=== PATIENT | female | born 1960 | race Caucasian/White ===

== ENCOUNTER → 2025-03-28 | Outpatient (CLI) | payer MEDICARE, OTHER ==
[~2025-03-28] MED LIST: BUSP5 PO; CEPH500 PO; CRUTCH USE; CYMBALTA60 M1 PO; ELIQUIS5 M2 PO; FOLI1 PO; GABA300 PO; HYDHCL25 PO; ISODICACE; LOSA25 PO; MASOPHEN325 M4 PO; MULTI-VITAMIN1 EAC2 PO; OMEP20ER PO; OXYACE5T PO; RXOXYACE PO; TAMS.4ER PO
[2025-03-28 13:35] LABS: BASOPHILS ABSOLUTE AUTO 0.09 K/mm3 (0.00-0.23); BASOPHILS PERCENT AUTO 1 % (0-2); EOSINOPHILS ABSOLUTE AUTO 0.54 K/mm3 (0.00-0.68); EOSINOPHILS PERCENT AUTO 4 % (0-6); Hematocrit 31.6 % (33.0-51.0); Hemoglobin 9.9 g/dL (11.5-16.0); IMMATURE GRAN ABSOLUTE AUTO 0.09 K/mm3 (0.00-0.10); IMMATURE GRAN PERCENT AUTO 1 % (0-1); LYMPHOCYTES ABSOLUTE AUTO 3.23 K/mm3 (0.84-5.20); LYMPHOCYTES PERCENT AUTO 23 % (21-46); MONOCYTES ABSOLUTE AUTO 1.77 K/mm3 (0.16-1.47); MONOCYTES PERCENT AUTO 13 % (4-13); Mean Corpuscular HGB Conc 31.3 g/dL (31.5-36.5); Mean Corpuscular Volume 78 fL (80-100); NEUTROPHILS ABSOLUTE AUTO 8.49 K/mm3 (1.96-9.15); NEUTROPHILS PERCENT AUTO 60 % (41-73); NRBC ABSOLUTE 0.00 K/mm3 (0.00-0.02); NRBC Auto 0.0 /100 WBC (0.0-0.2); Platelet Count 582 K/mm3 (150-400); RDW Coefficient Variation 17.2 % (11.7-14.2); RDW Standard Deviation 48.3 fL (35.1-46.3)
[2025-03-28 14:06] LABS: Alanine Aminotransfer (ALT/SGP 17.0 U/L (12-78); Albumin, Blood 2.7 g/dL (3.4-5.0); Albumin/Globulin Ratio 0.5 (0.8-1.8); Anion Gap 7.0 mmol/L (3-11); Aspartate Aminotrans (AST/SGOT 17.0 U/L (12-37); Bilirubin, Total 0.3 mg/dL (0.1-1.0); Blood Urea Nitrogen 14.0 mg/dL (8-24); CO2, Blood 26.0 mmol/L (21-32); Calcium, Blood 10.8 mg/dL (8.5-10.1); Chloride, Blood 103.0 mmol/L (98-108); Creatinine, Blood 0.7 mg/dL (0.40-1.00); Globulin, Blood 5.2 g/dL (2.2-4.0); Glucose, Blood 102.0 mg/dL (70-99); Potassium, Blood 4.3 mmol/L (3.5-5.5); Sodium, Blood 132.0 mmol/L (136-145); Total Protein, Blood 7.9 g/dL (6.4-8.2)
== END ==
LOC: LAB 13:24 → LAB SHORT 13:24
PROVIDERS: Emergency Medicine
DX: N39.0 Urinary tract infection, site not specified (principal)
CPT/HCPCS: 80053; 85025; 87040; 87077; 87086; 87186

== ENCOUNTER 2025-03-29 15:33 | Emergency (ER) | payer MEDICARE, OTHER ==
[~2025-03-29] VITALS: Ht 162.6 cm; Wt 55.3 kg
[2025-03-29 16:11] LABS: BASOPHILS ABSOLUTE AUTO 0.10 K/mm3 (0.00-0.23); BASOPHILS PERCENT AUTO 1 % (0-2); EOSINOPHILS ABSOLUTE AUTO 0.60 K/mm3 (0.00-0.68); EOSINOPHILS PERCENT AUTO 5 % (0-6); Hematocrit 31.6 % (33.0-51.0); Hemoglobin 9.9 g/dL (11.5-16.0); IMMATURE GRAN ABSOLUTE AUTO 0.11 K/mm3 (0.00-0.10); IMMATURE GRAN PERCENT AUTO 1 % (0-1); LYMPHOCYTES ABSOLUTE AUTO 2.83 K/mm3 (0.84-5.20); LYMPHOCYTES PERCENT AUTO 22 % (21-46); MONOCYTES ABSOLUTE AUTO 1.22 K/mm3 (0.16-1.47); MONOCYTES PERCENT AUTO 10 % (4-13); Mean Corpuscular HGB Conc 31.3 g/dL (31.5-36.5); Mean Corpuscular Volume 79 fL (80-100); NEUTROPHILS ABSOLUTE AUTO 7.83 K/mm3 (1.96-9.15); NEUTROPHILS PERCENT AUTO 62 % (41-73); NRBC ABSOLUTE 0.00 K/mm3 (0.00-0.02); NRBC Auto 0.0 /100 WBC (0.0-0.2); Platelet Count 612 K/mm3 (150-400); RDW Coefficient Variation 17.0 % (11.7-14.2); RDW Standard Deviation 47.9 fL (35.1-46.3)
[2025-03-29 16:42] LABS: Alanine Aminotransfer (ALT/SGP 17.0 U/L (12-78); Albumin, Blood 2.7 g/dL (3.4-5.0); Albumin/Globulin Ratio 0.5 (0.8-1.8); Anion Gap 7.0 mmol/L (3-11); Aspartate Aminotrans (AST/SGOT 18.0 U/L (12-37); Bilirubin, Total 0.3 mg/dL (0.1-1.0); Blood Urea Nitrogen 17.0 mg/dL (8-24); CO2, Blood 28.0 mmol/L (21-32); Calcium, Blood 11.0 mg/dL (8.5-10.1); Chloride, Blood 102.0 mmol/L (98-108); Creatinine, Blood 0.82 mg/dL (0.40-1.00); Globulin, Blood 5.1 g/dL (2.2-4.0); Glucose, Blood 118.0 mg/dL (70-99); Potassium, Blood 4.2 mmol/L (3.5-5.5); Sodium, Blood 133.0 mmol/L (136-145); Total Protein, Blood 7.8 g/dL (6.4-8.2)
[2025-03-29 20:23] LABS: Source, Urine Clean Catch
[2025-03-29 20:27] LABS: Bilirubin, Urine Neg (Neg); Glucose Qualitative, Urine Neg (Neg); Ketones, Urine Neg (Neg); Leukocyte Esterase, Urine 3+ (Neg); Protein, Urine 3+ (Neg); Specific Gravity, Urine 1.015 (1.003-1.022); Urobilinogen, Urine NORM (Normal)
[2025-03-29 20:36] LABS: Color, Urine Pale Yellow (P-Yellow)
[2025-03-29 20:39] LABS: White Blood Cells, Urine TNTC /hpf (0-5)
[2025-03-29 20:40] LABS: Red Blood Cells, Urine 25-50 /hpf (0-2)
[2025-03-29] MEDS ORDERED: CefTRIAXone Sodium 1,000 MG in NS 100 ML IV ONE (22:30)
[2025-03-29] MEDS ORDERED: CEPH500 PO (22:33)
== END 2025-03-29 23:00 | disposition home or self-care (01) ==
LOC: ER 15:33
PROVIDERS: Physician Assistant
DX: N39.0 Urinary tract infection, site not specified (principal); D64.9 Anemia, unspecified; D75.839 Thrombocytosis, unspecified; E87.1 Hypo-osmolality and hyponatremia; Z88.5 Allergy status to narcotic agent; Z79.899 Other long term (current) drug therapy
CPT/HCPCS: 80053; 81001; 83605; 85025; 87077; 87086; 87186; 96374; 99283-25; J0696

== ENCOUNTER 2025-04-26 19:21 | Inpatient (IN) | payer MEDICARE, BC, OTHER ==
[~2025-04-26] VITALS: Ht 162.6 cm; Wt 63.9 kg
[~2025-04-26 19:21] MED LIST changes: +NS 1,000 ML IV SCH
[2025-04-26] MEDS ORDERED: NS 1,000 ML IV SCH ×2 (19:45→23:05)
[2025-04-26 20:14] LABS: BASOPHILS ABSOLUTE AUTO 0.07 K/mm3 (0.00-0.23); BASOPHILS PERCENT AUTO 0 % (0-2); EOSINOPHILS ABSOLUTE AUTO 0.46 K/mm3 (0.00-0.68); EOSINOPHILS PERCENT AUTO 3 % (0-6); Hematocrit 30.2 % (33.0-51.0); Hemoglobin 9.6 g/dL (11.5-16.0); IMMATURE GRAN ABSOLUTE AUTO 0.71 K/mm3 (0.00-0.10); IMMATURE GRAN PERCENT AUTO 4 % (0-1); LYMPHOCYTES ABSOLUTE AUTO 3.54 K/mm3 (0.84-5.20); LYMPHOCYTES PERCENT AUTO 21 % (21-46); MONOCYTES ABSOLUTE AUTO 1.44 K/mm3 (0.16-1.47); MONOCYTES PERCENT AUTO 9 % (4-13); Mean Corpuscular HGB Conc 31.8 g/dL (31.5-36.5); Mean Corpuscular Volume 77 fL (80-100); NEUTROPHILS ABSOLUTE AUTO 10.40 K/mm3 (1.96-9.15); NEUTROPHILS PERCENT AUTO 63 % (41-73); NRBC ABSOLUTE 0.03 K/mm3 (0.00-0.02); NRBC Auto 0.2 /100 WBC (0.0-0.2); Platelet Count 784 K/mm3 (150-400); RDW Coefficient Variation 18.9 % (11.7-14.2); RDW Standard Deviation 52.0 fL (35.1-46.3)
[2025-04-26 20:32] LABS: Alanine Aminotransfer (ALT/SGP 16.0 U/L (12-78); Albumin, Blood 2.2 g/dL (3.4-5.0); Albumin/Globulin Ratio 0.4 (0.8-1.8); Anion Gap 7.0 mmol/L (3-11); Aspartate Aminotrans (AST/SGOT 13.0 U/L (12-37); Bilirubin, Total 0.2 mg/dL (0.1-1.0); Blood Urea Nitrogen 18.0 mg/dL (8-24); CO2, Blood 25.0 mmol/L (21-32); Calcium, Blood 9.7 mg/dL (8.5-10.1); Chloride, Blood 104.0 mmol/L (98-108); Creatinine, Blood 1.0 mg/dL (0.40-1.00); Globulin, Blood 5.3 g/dL (2.2-4.0); Glucose, Blood 95.0 mg/dL (70-99); Potassium, Blood 4.0 mmol/L (3.5-5.5); Sodium, Blood 132.0 mmol/L (136-145); Total Protein, Blood 7.5 g/dL (6.4-8.2)
[2025-04-26 22:14] LABS: Source, Urine Clean Catch
[2025-04-26 22:23] LABS: Bilirubin, Urine Neg (Neg); Glucose Qualitative, Urine Neg (Neg); Ketones, Urine Neg (Neg); Leukocyte Esterase, Urine 3+ (Neg); Protein, Urine 3+ (Neg); Specific Gravity, Urine 1.010 (1.003-1.022); Urobilinogen, Urine NORM (Normal)
[2025-04-26 22:39] LABS: Color, Urine Pale Yellow (P-Yellow)
[2025-04-26 22:40] LABS: Red Blood Cells, Urine 50-100 /hpf (0-2); White Blood Cells, Urine TNTC /hpf (0-5)
[2025-04-26] MEDS ORDERED: FLU VACC TS2025(65UP)/MF59C/PF 45 MCG/0.5 ML SYRINGE IM SCH (23:45)
[2025-04-26] MEDS ORDERED: Ondansetron HCl 2 MG / ML 2ML Vial IV PRN (23:55)
[2025-04-27 01:32] VITALS: BP 98/65
[2025-04-27 03:52] LABS: Source, Urine Foley catheter
[2025-04-27 03:57] LABS: Bilirubin, Urine Neg (Neg); Glucose Qualitative, Urine Neg (Neg); Ketones, Urine Neg (Neg); Leukocyte Esterase, Urine 3+ (Neg); Protein, Urine 3+ (Neg); Specific Gravity, Urine 1.010 (1.003-1.022); Urobilinogen, Urine NORM (Normal)
[2025-04-27 04:03] LABS: Color, Urine Yellow (P-Yellow)
[2025-04-27 04:05] LABS: Red Blood Cells, Urine 50-100 /hpf (0-2); White Blood Cells, Urine TNTC /hpf (0-5)
--- NOTE | 2025-04-27 04:44 | NUR ---
PT ADMITTED DUIRNG SHIFT . ALERT AND ORIENTED X4, ABLE TO MAKE NEEDS KNOWN. ON ROOM AIR-CONT. PULSE OX IN PLACE. TELE IN PLACE-RUNNING SINUS TACH. PATIENT IS A ONE ASSIT WITH FWW. SOPHIA REPLACED-UA SENT. NO COMPLAINTS OF PAIN. BED IN LOW POSITION WITH WHEELS LOCKED. CALL LIGHT WITHIN REACH
[2025-04-27 05:17] VITALS: BP 102/76
[2025-04-27 07:50] VITALS: BP 126/80
[2025-04-27] MEDS ORDERED: Enoxaparin 40 MG/0.4 ML SYR SC SCH (09:00)
[2025-04-27] MEDS ORDERED: Lactobacil 2-S.Thermo-Bifido 1 1 Cap PO SCH (09:00)
[2025-04-27 10:34] LABS: Hematocrit 26.4 % (33.0-51.0); Hemoglobin 8.4 g/dL (11.5-16.0); Mean Corpuscular HGB Conc 31.8 g/dL (31.5-36.5); Mean Corpuscular Volume 76 fL (80-100); NRBC ABSOLUTE 0.03 K/mm3 (0.00-0.02); NRBC Auto 0.2 /100 WBC (0.0-0.2); Platelet Count 667 K/mm3 (150-400); RDW Coefficient Variation 18.7 % (11.7-14.2); RDW Standard Deviation 51.2 fL (35.1-46.3)
[2025-04-27 10:57] LABS: BASOPHILS ABSOLUTE MAN 0.12 K/mm3 (0.00-0.23); BASOPHILS PERCENT MAN 1 % (0-2); EOSINOPHILS ABSOLUTE MAN 0.61 K/mm3 (0.00-0.68); EOSINOPHILS PERCENT MAN 5 % (0-6); LYMPHOCYTES ABSOLUTE MAN 1.60 K/mm3 (0.84-5.20); LYMPHOCYTES PERCENT MAN 13 % (21-46); MONOCYTES ABSOLUTE MAN 0.86 K/mm3 (0.16-1.47); MONOCYTES PERCENT MAN 7 % (4-13); NEUTROPHILS ABSOLUTE MAN 9.16 K/mm3 (1.96-9.15); SEG NEUTROPHILS PERCENT MAN 74 % (41-73)
[2025-04-27 11:00] LABS: Alanine Aminotransfer (ALT/SGP 12.0 U/L (12-78); Albumin, Blood 1.8 g/dL (3.4-5.0); Albumin/Globulin Ratio 0.4 (0.8-1.8); Anion Gap 10.0 mmol/L (3-11); Aspartate Aminotrans (AST/SGOT 11.0 U/L (12-37); Bilirubin, Total 0.2 mg/dL (0.1-1.0); Blood Urea Nitrogen 14.0 mg/dL (8-24); CO2, Blood 22.0 mmol/L (21-32); Calcium, Blood 9.2 mg/dL (8.5-10.1); Chloride, Blood 109.0 mmol/L (98-108); Creatinine, Blood 0.66 mg/dL (0.40-1.00); Globulin, Blood 4.4 g/dL (2.2-4.0); Glucose, Blood 89.0 mg/dL (70-99); Magnesium, Blood 1.8 mg/dL (1.6-2.4); Potassium, Blood 3.7 mmol/L (3.5-5.5); Sodium, Blood 137.0 mmol/L (136-145); Total Protein, Blood 6.2 g/dL (6.4-8.2)
[2025-04-27 15:44] VITALS: BP 102/74
--- NOTE | 2025-04-27 18:59 | NUR ---
SHIFT SUMMARY PT IS A/OX3-4, FORGETFUL AT TIMES. UP WITH 2 PERSON ASSIST TO BSC. NO ACUTE CHANGES THROUGHOUT THIS SHIFT. CONTINUING IV ANTIBIOTICS. UROLOGY CONSULTED THIS AFTERNOON. PT IS PLEASANT AND COOPERATIVE WITH CARE AND CALLS APPROPRIATELY USING THE CALL LIGHT.
[2025-04-27 23:05] VITALS: BP 117/76
[2025-04-28 03:22] VITALS: BP 126/81
--- NOTE | 2025-04-28 03:30 | NUR ---
DR. CARPIO NOTIFIED OF CHANGES ON TELEMTRY MONITOR. RN SPOKE WITH FACE TO FACE AND SHOWED DR. CARPIO THE MONITOR STRIP SENT OVER FROM [facility]. VITAL SIGNS STABLES AND PATIENT IS ASYMPTOMATIC. PER DR. CARPIO "CONTINUE TO MONITOR PATIENT. NO EKG NEEDED"
--- NOTE | 2025-04-28 04:31 | NUR ---
PATIENT ALERT AND ORIENTED X4, ABLE TO MAKE NEEDS KNOWN. ABLE TO TURN SELF IN BED. PATIENT ON ROOM AIR AN CONT. PULSE OX. PATIENT HAS CORTES IN PLACE, DRAINING TO GRAVITY. DR. CARPIO NOTIFIED OF TELE CHANGES (SEE PREVIOUS NOTE). BED IN LOW POSITION WITH WHEELS LOCKED. CALL LIGHT WITHIN REACH
[2025-04-28 04:44] LABS: Hematocrit 28.5 % (33.0-51.0); Hemoglobin 8.9 g/dL (11.5-16.0); Mean Corpuscular HGB Conc 31.2 g/dL (31.5-36.5); Mean Corpuscular Volume 77 fL (80-100); NRBC ABSOLUTE 0.02 K/mm3 (0.00-0.02); NRBC Auto 0.2 /100 WBC (0.0-0.2); Platelet Count 738 K/mm3 (150-400); RDW Coefficient Variation 18.8 % (11.7-14.2); RDW Standard Deviation 52.7 fL (35.1-46.3)
[2025-04-28 05:04] LABS: BAND PERCENT MAN 2 % (0-8); BASOPHILS ABSOLUTE MAN 0.26 K/mm3 (0.00-0.23); BASOPHILS PERCENT MAN 2 % (0-2); EOSINOPHILS ABSOLUTE MAN 0.92 K/mm3 (0.00-0.68); EOSINOPHILS PERCENT MAN 7 % (0-6); LYMPHOCYTES ABSOLUTE MAN 3.56 K/mm3 (0.84-5.20); LYMPHOCYTES PERCENT MAN 27 % (21-46); METAMYELOCYTE ABSOLUTE MAN 0.26 K/mm3 (0.00-0.00); METAMYELOCYTE PERCENT MAN 2 % (0-0); MONOCYTES ABSOLUTE MAN 0.79 K/mm3 (0.16-1.47); MONOCYTES PERCENT MAN 6 % (4-13); MYELOCYTE ABSOLUTE MAN 0.13 K/mm3 (0.00-0.00); MYELOCYTE PERCENT MAN 1 % (0-0); NEUTROPHILS ABSOLUTE MAN 7.26 K/mm3 (1.96-9.15); SEG NEUTROPHILS PERCENT MAN 53 % (41-73)
[2025-04-28 05:26] VITALS: BP 128/83
[2025-04-28 05:34] LABS: Ferritin, Serum 80.0 ng/mL (8-252); Total Iron Binding Capacity 163.0 ug/dL (250-450)
[2025-04-28 05:35] LABS: Anion Gap 7.0 mmol/L (3-11); Blood Urea Nitrogen 17.0 mg/dL (8-24); CO2, Blood 25.0 mmol/L (21-32); Calcium, Blood 9.9 mg/dL (8.5-10.1); Chloride, Blood 107.0 mmol/L (98-108); Creatinine, Blood 0.7 mg/dL (0.40-1.00); Glucose, Blood 110.0 mg/dL (70-99); Potassium, Blood 3.9 mmol/L (3.5-5.5); Sodium, Blood 135.0 mmol/L (136-145)
--- NOTE | 2025-04-28 05:51 | NUR ---
RN NOTIFIED DR. CARPIO OF ST CHANGES ON TELE MONITOR. EKG WAS DONE. RN CALLED DR. CARPIO TO REVIEW THE EKG AND VITAL SIGNS. VITAL SIGNS STABLE AND PATIENT IS ASYMPTOMATIC. NO COMPLAINTS OF CHEST PAIN, SOB, LIGHTHEADED OR DIZZINESS. PER DR CARPIO "NO NEW ORDERS, CONTINUE TO MONITOR." PATIENT HAS CALL [facility] WITHIN REACH
[2025-04-28] MEDS ORDERED: NS 250 ML IV PRN (07:05)
[2025-04-28 07:23] VITALS: BP 119/78
[2025-04-28] MEDS ORDERED: DULoxetine HCL 60 MG Capsule DR PO SCH (09:00)
[2025-04-28] MEDS ORDERED: Multivitamins 1 Tab PO SCH (09:00)
[2025-04-28] MEDS ORDERED: Folic Acid 1 MG TAB PO SCH (09:00)
[2025-04-28 11:47] VITALS: BP 104/72
[2025-04-28 15:56] VITALS: BP 92/60
--- NOTE | 2025-04-28 19:23 | NUR ---
SHIFT SUMMARY PT IS A/OX4. UP TO BS WITH 2 PERSON STAND PIVOT. NO ACUTE CHANGES THROUGHOUT THIS SHIFT. ON TELE RUNNING SINUS RYTHYM/SINUS TACH. CHRONIC CORTES IN PLACE, PATENT AND DRAINING YELLOW URINE TO GRAVITY. PT IS COOPERATIVE WITH CARE AND CALLS APPROPRIATELY USING THE CALL LIGHT.
[2025-04-28 20:15] VITALS: BP 95/64
[2025-04-29 04:08] VITALS: BP 102/73
--- NOTE | 2025-04-29 05:18 | NUR ---
SHIFT SUMMARY A/OX4, PLEASANT AND COOPERATIVE WITH CARE. CORTES PATENT AND DRAINING TO GRAVITY. DENIES PAIN. PRN ANIXETY MEDS GIVEN AT BEDTIME. NO ACUTE CHANGES AT THIS TIME.
[2025-04-29 08:12] VITALS: BP 116/79
[2025-04-29] MEDS ORDERED: Enoxaparin 40 MG/0.4 ML SYR SC SCH (09:00)
[2025-04-29] MEDS ORDERED: FURO20 PO (15:47)
[2025-04-29] MEDS ORDERED: FERSU300 PO (15:49)
[2025-04-29 16:02] VITALS: BP 103/67
--- NOTE | 2025-04-29 19:42 | NUR ---
SUMMARY PT PENDING UROLOGY PROCEDURE ON 05/02. CHRONIC CORTES PATENT AND DRAINING TO GRACITY YELLOW URINE. PRN TYLENOL GIVEN FOR R SHOULDER PAIN (CHRONIC) WITH REPORTED RELIEF. 2 ASSIST TO STAND PIVOT TO [facility]. HX MS WITH RESIDUAL LEFT SIDED WEAKNESS, EDEMA TO LOWER EXTREMITY BILATERALLY BUT WORSE ON LEFT. NO ASSOCIATED REDNESS OR CALF TENDERNESS TO LEFT LEG. DIET CHANGED TO REGULAR DIET PER PT REQUEST AND DR. GOMES VERBALLY OK'D. STARTED SOEM ORAL IRON TABLETS THIS EVENING, MED REC UPDATED PT WAS TAKING FERROUS SULFATE AT HOME AND HAD NOT BEEN RESTARTED. CALLING APPROPRIATELY.
[2025-04-29 20:16] VITALS: BP 94/72
[2025-04-29 23:48] VITALS: BP 94/66
[2025-04-30 03:51] VITALS: BP 107/66
--- NOTE | 2025-04-30 04:27 | NUR ---
NO ACUTE CHANGES DURING SHIFT. PATIENT ALERT AND ORIENTED X4, ABLE TO MAKE NEEDS KNOWN. PATIENT ABLE TO TURN SELF IN BED. CHRONIC CORTES IN PLACE-DRAINING TO GRAVITY. PATIENT ON ROOM AIR WITH CONT. PULSE OX-SATING WELL, NO SOB. IV ANTIBIOTICS RECEIVED. TYLENOL GIVEN FOR PAIN. BED IN LOW POSITION WITH WHEELS LOCKED. CALL LIGHT WITHIN REACH.
[2025-04-30 07:54] VITALS: BP 113/78
[2025-04-30 10:45] VITALS: BP 92/61
[2025-04-30 15:26] VITALS: BP 90/66
--- NOTE | 2025-04-30 18:38 | NUR ---
SUMMARY PATIENT STILL PENDING UROLOGY PROCEDURE ON 05/02. DR. GOMES CALLED UROLOGY TO CONFIRM TODAY. PT UP TO CHAIR WITH 1 ASSIST STAND PIVOT TRANSFER WITH GAIT BELT. PT TOOK TWO PEOPLE TO GET BACK TO BED AFTER SITTING UP FOR A COUPLE HOURS. PT CONTINUES TO HAVE LEFT SIDED WEAKNESS, RELATED TO HX OF MS PER PATIENT. LEFT LEG IS CHRONICALLY LARGER THAN RIGHT. PO ANTIBIOTICS ADDED TO EMAR LAST NIGHT AFTER URINE CX RESULTS REVIWED BY DR. GOMES. NO ACUTE EVENTS ON TELE. PT HARD LARGE BM TODAY 04/30 UP TO BSC.
[2025-04-30 19:18] VITALS: BP 103/69
[2025-04-30 23:48] VITALS: BP 93/65
[2025-05-01 02:58] VITALS: BP 93/66
--- NOTE | 2025-05-01 03:38 | NUR ---
SHIFT SUMMARY- A&Ox4. PLEASANT AND COOPERATIVE WITH CARE. CALLS APPROPRIATELY AND IS ABLE TO ADVOCATE NEEDS EFFECTIVELY. BP HAS BEEN 93/66. TELEMETRY ORDERED SINUS RHYTHM 95. BREATHING EVEN AND UNLABORED ON RA. CHRONIC CORTES CATHETER IN PLACE. CONTINENT BOWEL TO IN ROOM REST ROOM. LBM 05/01/25. TOLERATING DIET. IV R AC SALINE LOCKED. AMBULATES INDEPENDENTLY WITH SBA. EXISTING L SIDED WEAKNESS DUE TO MS. MEDS WHOLE WITH FLUIDS. BED IN LOWEST POSITION, CALL LIGHT WITHIN REACH, ALL NEEDS MET. REPORT TO ONCOMING NURSE.
[2025-05-01 07:57] VITALS: BP 112/70
[2025-05-01 11:39] VITALS: BP 97/63
[2025-05-01 15:13] VITALS: BP 96/68
[2025-05-01 19:45] VITALS: BP 101/70
[2025-05-01 23:44] VITALS: BP 93/62
[2025-05-02] VITALS (19 sets, daily range): BP systolic 76–151; BP diastolic 47–99
--- NOTE | 2025-05-02 04:32 | NUR ---
SHIFT SUMMARY PT ALERT ORIENTED X 4 ABLE TO VERBALIZE NEEDS SHE REQUIRES A 2 PERSON TRANSFER TO USE THE COMMODE. SHES BEEN NPO SINCE MIDNIGHT FOR HER PROCEDURE TODAY. SHES BEEN VERY ANXIOUS ABOUT THE PROCEDURE. I GAVE HER A BUSPAR AND A HYDROXYZINE AND SHE SLEPT WELL. CORTES CATH INTACT DRAINING YELLOW URINE. SHE REMAINS A DAILY WEIGHT. REMAINS ON A CONTINUOUS PULSE OX SATTING AT 98% ON RA. REMAINS ON TELEMETRY AT NSR AT 91 WITH A BBB. REMAINS ON AMOXICILLIN AND MEROPENUM FOR A UTI. RESTING IN HER BED AT THIS TIME WITH CALL LIGHT IN REACH AND BED ALARM ON.
[2025-05-02 04:45] LABS: BASOPHILS ABSOLUTE AUTO 0.08 K/mm3 (0.00-0.23); BASOPHILS PERCENT AUTO 1 % (0-2); EOSINOPHILS ABSOLUTE AUTO 0.77 K/mm3 (0.00-0.68); EOSINOPHILS PERCENT AUTO 8 % (0-6); Hematocrit 26.2 % (33.0-51.0); Hemoglobin 8.2 g/dL (11.5-16.0); IMMATURE GRAN ABSOLUTE AUTO 0.33 K/mm3 (0.00-0.10); IMMATURE GRAN PERCENT AUTO 3 % (0-1); LYMPHOCYTES ABSOLUTE AUTO 3.61 K/mm3 (0.84-5.20); LYMPHOCYTES PERCENT AUTO 35 % (21-46); MONOCYTES ABSOLUTE AUTO 1.08 K/mm3 (0.16-1.47); MONOCYTES PERCENT AUTO 11 % (4-13); Mean Corpuscular HGB Conc 31.3 g/dL (31.5-36.5); Mean Corpuscular Volume 77 fL (80-100); NEUTROPHILS ABSOLUTE AUTO 4.46 K/mm3 (1.96-9.15); NEUTROPHILS PERCENT AUTO 43 % (41-73); NRBC ABSOLUTE 0.00 K/mm3 (0.00-0.02); NRBC Auto 0.0 /100 WBC (0.0-0.2); Platelet Count 722 K/mm3 (150-400); RDW Coefficient Variation 18.6 % (11.7-14.2); RDW Standard Deviation 50.7 fL (35.1-46.3)
[2025-05-02 05:04] LABS: Alanine Aminotransfer (ALT/SGP 26.0 U/L (12-78); Albumin, Blood 2.0 g/dL (3.4-5.0); Albumin/Globulin Ratio 0.5 (0.8-1.8); Anion Gap 4.0 mmol/L (3-11); Aspartate Aminotrans (AST/SGOT 26.0 U/L (12-37); Bilirubin, Total 0.1 mg/dL (0.1-1.0); Blood Urea Nitrogen 19.0 mg/dL (8-24); CO2, Blood 31.0 mmol/L (21-32); Calcium, Blood 10.0 mg/dL (8.5-10.1); Chloride, Blood 106.0 mmol/L (98-108); Creatinine, Blood 0.68 mg/dL (0.40-1.00); Globulin, Blood 4.4 g/dL (2.2-4.0); Glucose, Blood 106.0 mg/dL (70-99); Potassium, Blood 4.2 mmol/L (3.5-5.5); Sodium, Blood 137.0 mmol/L (136-145); Total Protein, Blood 6.4 g/dL (6.4-8.2)
--- NOTE | 2025-05-02 06:05 | NUR ---
CHG BATH WAS DONE LAST NIGHT FOR SURGERY THIS AM. DR. PALENCIA CALLED TO MAKE SURE THAT SHES BEEN NPO. HE STATED SURGERY IS AROUND 0900.
--- NOTE | 2025-05-02 09:14 | NUR ---
PT TRANSPORTED TO [facility]. AGREES WITH PLANNED SURGERY. LUNG SOUNDS CLEAR. History, Chart, Medications and Allergies reviewed before start of procedure. ANSWERS QUESTIONS APPROPRIATLY. STATES SHE SIGNS HER OWN MEDICAL PAPERWORK. Patient confirms NPO status and agrees with scheduled surgery.
[2025-05-02] MEDS ORDERED: FentaNYL Citrate 50 MCG/ML 2 ML Injection ONE ×2 (09:21→12:28)
[2025-05-02] MEDS ORDERED: Ondansetron HCl 2 MG / ML 2ML Vial IV PRN (10:35)
[2025-05-02] MEDS ORDERED: Morphine Sulfate 4 MG/1 ML Injection IV PRN (10:40)
[2025-05-02] MEDS ORDERED: FentaNYL Citrate 50 MCG/ML 2 ML Injection IV PRN ×2 (10:40)
[2025-05-02] MEDS ORDERED: Rocuronium Bromide 10 MG/ML 5ML Injection IV ONE (11:25)
[2025-05-02] MEDS ORDERED: Metoclopramide HCl 5MG / ML 2ML Vial ONE (11:40)
[2025-05-02] MEDS ORDERED: Ondansetron HCl 2 MG / ML 2ML Vial ONE ×2 (11:40→13:21)
[2025-05-02] MEDS ORDERED: Sugammadex Sodium 200 MG/2ML SDV (100 MG/ML) ONE (11:48)
--- NOTE | 2025-05-02 11:59 | NUR ---
05/02/25 Kari Barber ISOVUE 300--15ML USED
--- NOTE | 2025-05-02 15:09 | NUR ---
PATIENT RETURNED FROM PACU ~1340. NOTED TO BE HYPOXIC ON 2LPM/NC; INCREASED TO 3LPM/NC AND STILL MAINTAINING 91%. HYPOTENSIVE SBP < 90 AND TACHYCARDIC c HR >120. CALL TO DR SOLO: T.O. FOR 500mL NS BOLUS AND KEEP HIM UPDATED. ORDER READ BACK AND CONFIRMED.
[2025-05-02] MEDS ORDERED: NS 500 ML IV ONE (15:10)
[2025-05-02] MEDS ORDERED: Albuterol 2.5 MG/3 ML VIAL INH PRN (16:45)
--- NOTE | 2025-05-02 19:22 | NUR ---
END OF SHIFT SUMMARY: A&Ox4. PLEASANT AND COOPERATIVE WITH CARE. CALLS APPROPRIATELY AND IS ABLE TO ADVOCATE NEEDS EFFECTIVELY. VSS. TELE STRIP IN CHART REVIEWED AND INTERPRETED SINUS c BBB. BREATHING EVEN AND UNLABORED c RA PRIOR TO SURGERY. UPON RETURNING FROM SURGERY, NOTED TO BE LETHARGIC; SPOT ~86% c RA; FINALLY ABLE TO MAINTAIN >92% c2-3LPM/NC. HYPOTENSIVE AND TACHYCARDIC. GIVEN 500mL BOLUS NS PER DR GOMES. LATER DEVELOPING LOW-GRADE FEVER AND CRACKLES IN LLL; DR NOTIFIED AND RXd NEB Tx AND GIVEN APAP. INCONTINENT OF BOWEL AND BLADDER. CORTES PULLED AFTER SURGERY; HAS NOT YET VOIDED. LAST BLADDER SCAN 129mL. NOW AWAKE AND ALERT, TOLERATING DIET. IN PROCEDURE: REPLACED LEFT URETER STENT; UNABLE TO REPLACE RIGHT. 1-2PA c FWW & GB S/P TO BSC FOR BM. MEDS WHOLE c FLUIDS. BED IN LOWEST POSITION, CALL LIGHT WITHIN REACH, ALL NEEDS MET. REPORT TO ONCOMING NURSE.
[2025-05-03 00:21] VITALS: BP 76/51
[2025-05-03 04:02] VITALS: BP 80/51
--- NOTE | 2025-05-03 06:39 | NUR ---
SHIFT SUMMARY A/Ox4, LOW BP, OTHER VSS ON 1L. WEANED TO RA THIS MORNING; SPO2 >92%. PT REPORTS HEADACHE, MANAGED WITH PRN TYLENOL. BLADDER SCAN FOUND 569 ML, CORTES CATHETER PLACED, PT TOLERATED WELL. DRAINING TEA COLORED URINE. SAFETY PRECAUTIONS IN PLACE. GROCERY DEPARTMENT MANAGER REPORTS 17 BEAT RUN OF SVT, PT ASYMPTOMATIC. PT DENIES LIGHTHEADEDNESS, CHEST PAIN, NAUSEA.
[2025-05-03 07:48] VITALS: BP 97/63
--- NOTE | 2025-05-03 08:08 | NUR ---
ASSUMPTION OF CARE: THIS RN ASSUMED CARE OF PATIENT FOR SECOND DAY. AWAKE DURING SHIFT CHANGE REPORT. SITTING UP IN BED c HOB ELEVATED. BREATHING EVEN AND UNLABORED c ROOM AIR. CORTES PLACED LAST NIGHT; PATENT AND DRAINING TEA-COLORED URINE TO GRAVITY. MOST RECENT TELE STRIP IN CHART INTERPRETED SINUS TACH c BBB @ 105; NOTED TO HAVE 17-BEAT RUN OF SVT LAST NIGHT. NO LABS DRAWN THIS MORNING; LAST MAG DRAWN 04/27 WAS 1.8. BED IN LOWEST POSITION. CALL LIGHT WITHIN REACH. ACUTE NEEDS MET.
[2025-05-03] MEDS ORDERED: Enoxaparin 40 MG/0.4 ML SYR SC SCH (09:00)
[2025-05-03 15:33] VITALS: BP 77/50
[2025-05-03] MEDS ORDERED: NS 500 ML IV SCH (16:00)
[2025-05-03 16:21] LABS: Hematocrit 22.6 % (33.0-51.0); Hemoglobin 7.1 g/dL (11.5-16.0); Mean Corpuscular HGB Conc 31.4 g/dL (31.5-36.5); Mean Corpuscular Volume 79 fL (80-100); NRBC ABSOLUTE 0.00 K/mm3 (0.00-0.02); NRBC Auto 0.0 /100 WBC (0.0-0.2); Platelet Count 518 K/mm3 (150-400); RDW Coefficient Variation 18.5 % (11.7-14.2); RDW Standard Deviation 53.5 fL (35.1-46.3)
[2025-05-03 16:43] LABS: BAND PERCENT MAN 5 % (0-8); BASOPHILS ABSOLUTE MAN 0.00 K/mm3 (0.00-0.23); BASOPHILS PERCENT MAN 0 % (0-2); EOSINOPHILS ABSOLUTE MAN 0.00 K/mm3 (0.00-0.68); EOSINOPHILS PERCENT MAN 0 % (0-6); LYMPHOCYTES ABSOLUTE MAN 3.91 K/mm3 (0.84-5.20); LYMPHOCYTES PERCENT MAN 7 % (21-46); MONOCYTES ABSOLUTE MAN 5.03 K/mm3 (0.16-1.47); MONOCYTES PERCENT MAN 9 % (4-13); NEUTROPHILS ABSOLUTE MAN 47.03 K/mm3 (1.96-9.15); SEG NEUTROPHILS PERCENT MAN 79 % (41-73)
[2025-05-03 16:46] LABS: Alanine Aminotransfer (ALT/SGP 27.0 U/L (12-78); Albumin, Blood 1.9 g/dL (3.4-5.0); Albumin/Globulin Ratio 0.4 (0.8-1.8); Anion Gap 10.0 mmol/L (3-11); Aspartate Aminotrans (AST/SGOT 31.0 U/L (12-37); Bilirubin, Total 0.2 mg/dL (0.1-1.0); Blood Urea Nitrogen 29.0 mg/dL (8-24); CO2, Blood 25.0 mmol/L (21-32); Calcium, Blood 9.3 mg/dL (8.5-10.1); Chloride, Blood 102.0 mmol/L (98-108); Creatinine, Blood 1.59 mg/dL (0.40-1.00); Globulin, Blood 4.4 g/dL (2.2-4.0); Glucose, Blood 117.0 mg/dL (70-99); Magnesium, Blood 2.0 mg/dL (1.6-2.4); Potassium, Blood 4.6 mmol/L (3.5-5.5); Sodium, Blood 132.0 mmol/L (136-145); Total Protein, Blood 6.3 g/dL (6.4-8.2)
[2025-05-03 20:20] VITALS: BP 83/68
[2025-05-03 20:22] VITALS: BP 75/55
--- NOTE | 2025-05-03 20:32 | NUR ---
END OF SHIFT SUMMARY: A&Ox4. PLEASANT AND COOPERATIVE WITH CARE. CALLS APPROPRIATELY AND IS ABLE TO ADVOCATE NEEDS EFFECTIVELY. TELE STRIP IN CHART REVIEWED AND INTERPRETED SINUS TACH c BBB @ 105. BREATHING EVEN AND UNLABROED AT REST; DYSPNIC AND DESATURATES c EXERTION. DESATTED TO 62% TODAY WHEN TRANSFERRING TO COMMODE. RECOVERED c 2LPM/NC AND REST. CONTINUOUS PULSE OX IN PLACE. CXR TODAY WNL. HYPOTENSIVE AGAIN THIS AFTERNOON AND GIVEN ANOTHER 500mL BOLUS NS. IV INFILTRATED; POWERGLIDE PLACED JOSE ANTONIO. NOTED TO HAVE SIGNIFICANT INCREASE IN WBC FROM 10 TO ALMOST 60 TODAY; UROLOGIST, DR PALENCIA, HAPPENED TO BE AT BEDSIDE; SUSPECTS INCREASE IN WBC R/T ATTEMTPED DISLODGEMENT OF URETERAL STENT AND LITHOTROPSY. HE WILL CONFER WITH COVERING HOSPITALIST. TOLERATING PO INTAKE. MEDICATED x2 PRN PAIN AND ANXIETY. MEDS WHOLE c FLUIDS. WEAK DURING TRANSFER TO [facility] TODAY. NURSE FROM [facility] CAME TO VISIT; INFORMED WILL NOT BE ABLE TO DISCHARGE HOME UNTIL AT LEAST TUESDAY. DR PALENCIA BELIEVES PATIENT MAY NEED TO BE TRANSFERRED TO HIGHER LEVEL OF CARE DUE TO RETAINED RIGHT URETERAL STENT AND NO UROLOGY COVER FOR THE NEXT WEEK. DR PALENCIA WILL CONFER WITH HOSPITALIST. BED IN LOWEST POSITION, CALL LIGHT WITHIN REACH, ALL NEEDS MET. REPORT TO ONCOMING NURSE.
[2025-05-04] VITALS (7 sets, daily range): BP systolic 83–109; BP diastolic 59–82
--- NOTE | 2025-05-04 04:41 | NUR ---
PATIENT HAS RESTED COMFORTABLY OVERNIGHT. NO ACUTE EVENTS AND VITALS STABLE. PATIENT REQUESTED BUSPAR WITH BEDTIME MEDS D/T ANXIETY. BED IN LOW POSITION, CALL NIEVES WITHIN REACH, POSESSIONS WITHIN REACH.
[2025-05-04 11:23] LABS: BASOPHILS ABSOLUTE AUTO 0.10 K/mm3 (0.00-0.23); BASOPHILS PERCENT AUTO 0 % (0-2); EOSINOPHILS ABSOLUTE AUTO 0.32 K/mm3 (0.00-0.68); EOSINOPHILS PERCENT AUTO 1 % (0-6); Hematocrit 23.3 % (33.0-51.0); Hemoglobin 7.3 g/dL (11.5-16.0); IMMATURE GRAN ABSOLUTE AUTO 0.45 K/mm3 (0.00-0.10); IMMATURE GRAN PERCENT AUTO 1 % (0-1); LYMPHOCYTES ABSOLUTE AUTO 2.12 K/mm3 (0.84-5.20); LYMPHOCYTES PERCENT AUTO 5 % (21-46); MONOCYTES ABSOLUTE AUTO 2.37 K/mm3 (0.16-1.47); MONOCYTES PERCENT AUTO 6 % (4-13); Mean Corpuscular HGB Conc 31.3 g/dL (31.5-36.5); Mean Corpuscular Volume 78 fL (80-100); NEUTROPHILS ABSOLUTE AUTO 33.86 K/mm3 (1.96-9.15); NEUTROPHILS PERCENT AUTO 86 % (41-73); NRBC ABSOLUTE 0.00 K/mm3 (0.00-0.02); NRBC Auto 0.0 /100 WBC (0.0-0.2); Platelet Count 575 K/mm3 (150-400); RDW Coefficient Variation 18.7 % (11.7-14.2); RDW Standard Deviation 53.0 fL (35.1-46.3)
[2025-05-04] MEDS ORDERED: NS 1,000 ML IV SCH (11:40)
[2025-05-04 11:45] LABS: Alanine Aminotransfer (ALT/SGP 26.0 U/L (12-78); Albumin, Blood 1.9 g/dL (3.4-5.0); Albumin/Globulin Ratio 0.4 (0.8-1.8); Anion Gap 10.0 mmol/L (3-11); Aspartate Aminotrans (AST/SGOT 23.0 U/L (12-37); Bilirubin, Total 0.2 mg/dL (0.1-1.0); Blood Urea Nitrogen 30.0 mg/dL (8-24); CO2, Blood 24.0 mmol/L (21-32); Calcium, Blood 9.1 mg/dL (8.5-10.1); Chloride, Blood 104.0 mmol/L (98-108); Creatinine, Blood 1.02 mg/dL (0.40-1.00); Globulin, Blood 4.6 g/dL (2.2-4.0); Glucose, Blood 115.0 mg/dL (70-99); Potassium, Blood 4.4 mmol/L (3.5-5.5); Sodium, Blood 134.0 mmol/L (136-145); Total Protein, Blood 6.5 g/dL (6.4-8.2)
[2025-05-04 13:24] LABS: Prothrombin Time Results 10.8 Sec (9.7-11.5)
--- NOTE | 2025-05-04 19:47 | NUR ---
NO ACUTE CHANGES THIS SHIFT. UROLOGY ORDERED LABS AND CT, BOTH IMPROVED. CORTES IN PLACE DRAINING YELLOW URINE. NS STARTED AT 100ML/HR. RA WHILE AWAKE 1L O2 WHEN ASLEEP D/T DESAT TO 87%. FREQUENT SOFT BM THIS SHIFT INC IN BRIEF. PT ABLE TO MAKE NEEDS KNOWN, CALL LIGHT IN REACH.
[2025-05-05] VITALS (13 sets, daily range): BP systolic 97–125; BP diastolic 60–90
--- NOTE | 2025-05-05 03:49 | NUR ---
Patient alert and oriented, denies pain currently, lungs clear contact isolation in place for ESBL in urine, takes medication whole with water, NS at 100cc/hour, states she has been having multiple soft stools she feels is brought on by antibiotics, denies nausea, requesting buspar and atarax at bedtime, call light in reach, bed in low and locked position will continue to monitor.
[2025-05-05 05:08] LABS: BASOPHILS ABSOLUTE AUTO 0.08 K/mm3 (0.00-0.23); BASOPHILS PERCENT AUTO 0 % (0-2); EOSINOPHILS ABSOLUTE AUTO 0.47 K/mm3 (0.00-0.68); EOSINOPHILS PERCENT AUTO 2 % (0-6); Hematocrit 22.9 % (33.0-51.0); Hemoglobin 7.1 g/dL (11.5-16.0); IMMATURE GRAN ABSOLUTE AUTO 0.14 K/mm3 (0.00-0.10); IMMATURE GRAN PERCENT AUTO 1 % (0-1); LYMPHOCYTES ABSOLUTE AUTO 2.71 K/mm3 (0.84-5.20); LYMPHOCYTES PERCENT AUTO 13 % (21-46); MONOCYTES ABSOLUTE AUTO 1.54 K/mm3 (0.16-1.47); MONOCYTES PERCENT AUTO 8 % (4-13); Mean Corpuscular HGB Conc 31.0 g/dL (31.5-36.5); Mean Corpuscular Volume 79 fL (80-100); NEUTROPHILS ABSOLUTE AUTO 15.38 K/mm3 (1.96-9.15); NEUTROPHILS PERCENT AUTO 76 % (41-73); NRBC ABSOLUTE 0.00 K/mm3 (0.00-0.02); NRBC Auto 0.0 /100 WBC (0.0-0.2); Platelet Count 597 K/mm3 (150-400); RDW Coefficient Variation 18.6 % (11.7-14.2); RDW Standard Deviation 53.4 fL (35.1-46.3)
[2025-05-05 06:05] LABS: Alanine Aminotransfer (ALT/SGP 26.0 U/L (12-78); Albumin, Blood 1.8 g/dL (3.4-5.0); Albumin/Globulin Ratio 0.4 (0.8-1.8); Anion Gap 7.0 mmol/L (3-11); Aspartate Aminotrans (AST/SGOT 27.0 U/L (12-37); Bilirubin, Total 0.3 mg/dL (0.1-1.0); Blood Urea Nitrogen 24.0 mg/dL (8-24); CO2, Blood 27.0 mmol/L (21-32); Calcium, Blood 9.3 mg/dL (8.5-10.1); Chloride, Blood 108.0 mmol/L (98-108); Creatinine, Blood 0.77 mg/dL (0.40-1.00); Globulin, Blood 4.3 g/dL (2.2-4.0); Glucose, Blood 97.0 mg/dL (70-99); Potassium, Blood 4.4 mmol/L (3.5-5.5); Sodium, Blood 138.0 mmol/L (136-145); Total Protein, Blood 6.1 g/dL (6.4-8.2)
[2025-05-05] MEDS ORDERED: NS 500 ML IV SCH (10:40)
--- NOTE | 2025-05-05 18:09 | NUR ---
SHIFT SUMMARY PT A&OX4, VSS, RA TO 1 L O2 FOR DESATTING TO 87% WHILE SLEEPING. HGB THIS MORNING 7.1, 1 UNIT PRBC INFUSED, PT TOLERATED WELL. CORTES IN PLACE DRAINING CLEAR YELLOW URINE. OT EVAL TODAY. ORAL AND IV ABX CONTINUED. ABLE TO MAKE NEEDS KNOWN, CALL LIGHT IN REACH.
[2025-05-06 04:16] VITALS: BP 117/74
[2025-05-06 04:17] VITALS: BP 117/74
[2025-05-06 04:47] LABS: BASOPHILS ABSOLUTE AUTO 0.12 K/mm3 (0.00-0.23); BASOPHILS PERCENT AUTO 1 % (0-2); EOSINOPHILS ABSOLUTE AUTO 0.66 K/mm3 (0.00-0.68); EOSINOPHILS PERCENT AUTO 5 % (0-6); Hematocrit 25.9 % (33.0-51.0); Hemoglobin 8.5 g/dL (11.5-16.0); IMMATURE GRAN ABSOLUTE AUTO 0.16 K/mm3 (0.00-0.10); IMMATURE GRAN PERCENT AUTO 1 % (0-1); LYMPHOCYTES ABSOLUTE AUTO 3.30 K/mm3 (0.84-5.20); LYMPHOCYTES PERCENT AUTO 25 % (21-46); MONOCYTES ABSOLUTE AUTO 1.23 K/mm3 (0.16-1.47); MONOCYTES PERCENT AUTO 9 % (4-13); Mean Corpuscular HGB Conc 32.8 g/dL (31.5-36.5); Mean Corpuscular Volume 77 fL (80-100); NEUTROPHILS ABSOLUTE AUTO 7.87 K/mm3 (1.96-9.15); NEUTROPHILS PERCENT AUTO 59 % (41-73); NRBC ABSOLUTE 0.00 K/mm3 (0.00-0.02); NRBC Auto 0.0 /100 WBC (0.0-0.2); Platelet Count 622 K/mm3 (150-400); RDW Coefficient Variation 18.0 % (11.7-14.2); RDW Standard Deviation 50.2 fL (35.1-46.3)
[2025-05-06 05:05] LABS: Anion Gap 8.0 mmol/L (3-11); Blood Urea Nitrogen 19.0 mg/dL (8-24); CO2, Blood 27.0 mmol/L (21-32); Calcium, Blood 10.2 mg/dL (8.5-10.1); Chloride, Blood 108.0 mmol/L (98-108); Creatinine, Blood 0.69 mg/dL (0.40-1.00); Glucose, Blood 91.0 mg/dL (70-99); Potassium, Blood 4.5 mmol/L (3.5-5.5); Sodium, Blood 138.0 mmol/L (136-145)
--- NOTE | 2025-05-06 06:50 | NUR ---
SHIFT SUMMARY PT REMAINS NORMOTENSIVE. DOES HAVE 1 EPISODE OF DE-SAT TO 87% ON RA THIS EVENING. PLACED ON 1L NC WITH IMPROVEMENT >92% SPO2. REMAINS IN BED WITH CHRONIC LUE/LLE FLACCIDITY DUE TO [place] FORREST AND COOPERATIVE WITH CARE. NO FURTHER BMS THIS EVEING AFTER 5 LOOSE BMS YESTERDAY PT RELATES TO ANTIBIOTIC USE. PENDING PT EVAL TODAY. OT ADVISED SNF. DR. PALENCIA HAS ARRANGED WITH DR. ALEJANDRO DUTY OF [facility] NE[facility]OLOG[facility] F/U FOR PT'S RETAINED R URETER STENT. CHRONIC CORTES IN PLACE DRAINING CLEAR DARK-YELLOW URINE. PT'S RESIDENCE AT [place]. WHEELCHAIR BOUND AT BASELINE. PATENT POWERGLIDE THAT DRAWS WELL IN JOSE ANTONIO.
--- NOTE | 2025-05-06 06:52 | NUR ---
PT C/O FLANAGAN AND ANXIETY THIS SHIFT. MEDICATION GIVEN RX. PT SLEPT T/O SHIFT NO ACUTES CHANGES NOTED.
[2025-05-06 08:17] VITALS: BP 108/75
[2025-05-06 14:43] VITALS: BP 107/81
--- NOTE | 2025-05-06 18:33 | NUR ---
SHIFT SUMMARY PT IS A/OX4. WHEELCHAIR AT BASELINE. NO ACUTE EVENTS THROUGHOUT THIS SHIFT. ON RA, SATS >92% ON CONT PULSE OX. CHRONIC CORTES DRAINING CLEAR, YELLOW URINE TO GRAVITY. ON TELE RUNNING NORMAL SINUS RYTHYM IN THE S. CONTINUING IV ANTIBIOTICS. PT IS COOPERATIVE WITH CARE AND CALLS APPROPRIATELY.
[2025-05-06 19:28] VITALS: BP 113/69
[2025-05-07] VITALS (7 sets, daily range): BP systolic 99–124; BP diastolic 66–86
--- NOTE | 2025-05-07 05:46 | NUR ---
SHIFT SUMMARY CONTINUE CONTACT PRECAUTIONS FOR ESBL. CONTINUE IV MEROPENEM VIA JOSE ANTONIO POWERGLIDE FOR E. COLI AND E. FAECALIS UTI. CHRONIC CORTES DRAINING YELLOW URINE TO GRAVITY S/P PLACEMENT FOR RETENTION FOLLOWING L URETERIC STENT PLACEMENT 05/02. TELEMETRY UPDATES MONITOR SHOWING LOW VOLTAGE AT 0505, PT DECLINES ANY SYMPTOMS AND STATES SHE WILL ATTEMPT TO RETURN TO SLEEP. PENDING SNF UPON DISPOSITION. NOT REQUIRING FURTHER PRBC TRANSFUSION TODAY S/P 1 U TRANSFUSED 05/06. USING 1L NC DURING SLEEP PER RT WITH NO FURTHER DE-SAT BELOW 92% THIS EVENING. PLAN S/P SNF FOR OUTPATIENT F/U WITH DR. FLAVIA HOUSTON OF [facility] TO CONSIDER R URETERIC STENT REMOVAL & SHOCK WAVE LITHOTRISPY FOR STONES. PT TAKING MEDS WHOLE WITH WATER. PT WAKES EACH AM DURING THIS [id number] STAY WITH HEADACHE AND B/L EAR PAIN. PLAN TO DISCUSS WITH ONCOMING RN FOR REPORT TO
[2025-05-07 05:48] LABS: BASOPHILS ABSOLUTE AUTO 0.14 K/mm3 (0.00-0.23); BASOPHILS PERCENT AUTO 1 % (0-2); EOSINOPHILS ABSOLUTE AUTO 0.71 K/mm3 (0.00-0.68); EOSINOPHILS PERCENT AUTO 6 % (0-6); Hematocrit 27.6 % (33.0-51.0); Hemoglobin 8.9 g/dL (11.5-16.0); IMMATURE GRAN ABSOLUTE AUTO 0.41 K/mm3 (0.00-0.10); IMMATURE GRAN PERCENT AUTO 3 % (0-1); LYMPHOCYTES ABSOLUTE AUTO 3.70 K/mm3 (0.84-5.20); LYMPHOCYTES PERCENT AUTO 29 % (21-46); MONOCYTES ABSOLUTE AUTO 1.27 K/mm3 (0.16-1.47); MONOCYTES PERCENT AUTO 10 % (4-13); Mean Corpuscular HGB Conc 32.2 g/dL (31.5-36.5); Mean Corpuscular Volume 78 fL (80-100); NEUTROPHILS ABSOLUTE AUTO 6.47 K/mm3 (1.96-9.15); NEUTROPHILS PERCENT AUTO 51 % (41-73); NRBC ABSOLUTE 0.00 K/mm3 (0.00-0.02); NRBC Auto 0.0 /100 WBC (0.0-0.2); Platelet Count 659 K/mm3 (150-400); RDW Coefficient Variation 18.5 % (11.7-14.2); RDW Standard Deviation 51.9 fL (35.1-46.3)
[2025-05-07 06:07] LABS: Anion Gap 6.0 mmol/L (3-11); Blood Urea Nitrogen 21.0 mg/dL (8-24); CO2, Blood 29.0 mmol/L (21-32); Calcium, Blood 10.8 mg/dL (8.5-10.1); Chloride, Blood 106.0 mmol/L (98-108); Creatinine, Blood 0.82 mg/dL (0.40-1.00); Glucose, Blood 99.0 mg/dL (70-99); Potassium, Blood 4.5 mmol/L (3.5-5.5); Sodium, Blood 136.0 mmol/L (136-145)
[2025-05-07 15:45] LABS: Anti-Xa UFH, PHA Monitoring <0.10 IU/mL; Prothrombin Time Results 10.6 Sec (9.7-11.5)
[2025-05-07] MEDS ORDERED: Heparin Sodium,Porcine/0.5 NS 500 ML IV SCH (16:00)
[2025-05-07] MEDS ORDERED: Heparin Sodium 10,000 Units/ML 1ML MDV IV ONE (16:00)
--- NOTE | 2025-05-07 17:08 | NUR ---
SHIFT SUMMARY: PT A&OX4. FOLLOWS COMMANDS AND MAKES NEEDS KNOWN TO STAFF. PT GOT OUT OF BED TODAY FOR LUNCH WITH 1P ASSIST. DENIES ANY COMPLAINTS OF CP, PRESSURE, TIGHTNESS OR SOB. VSS. MAP >65. PT HAD A L LEG ULTRASOUND THAT SHOWED A DVT FROM THE GROIN TO THE KNEE. HEPARIN GTT STARTED. CORTES REMAINS IN PLACE, DRAINING YELLOW URINE. NO SIGNIFICNAT EVENTS HAPPENED DURING THIS SHIFT. WILL CONTINUE TO CARE FOR PT TILL END OF SHIFT.
[2025-05-08] MEDS ORDERED: Dose Adjust by Pharmacy XX STA ×4 (00:32→20:47)
[2025-05-08 04:37] VITALS: BP 109/69
[2025-05-08 06:32] LABS: Hematocrit 27.1 % (33.0-51.0); Hemoglobin 8.5 g/dL (11.5-16.0); Mean Corpuscular HGB Conc 31.4 g/dL (31.5-36.5); Mean Corpuscular Volume 78 fL (80-100); NRBC ABSOLUTE 0.00 K/mm3 (0.00-0.02); NRBC Auto 0.0 /100 WBC (0.0-0.2); Platelet Count 676 K/mm3 (150-400); RDW Coefficient Variation 18.9 % (11.7-14.2); RDW Standard Deviation 53.1 fL (35.1-46.3)
--- NOTE | 2025-05-08 06:46 | NUR ---
Shift Summary Pt on heparin drip t/o the night. Wyatt in place draining yellow urine. Pt c/o of head and neck pain, medicated twice with PRN Tylenol, pain managed well. She slept t/o most of the night. She was on 1L NC O2 while asleep and cont. O2 monitor. If her O2 was not on she would desat down to mid 80's. She had one loose incontinent BM. L sided deficits. Pt very weak, she remained in bed, WC at baseline.
[2025-05-08 06:57] LABS: BAND PERCENT MAN 1 % (0-8); BASOPHILS ABSOLUTE MAN 0.26 K/mm3 (0.00-0.23); BASOPHILS PERCENT MAN 2 % (0-2); EOSINOPHILS ABSOLUTE MAN 0.78 K/mm3 (0.00-0.68); EOSINOPHILS PERCENT MAN 6 % (0-6); LYMPHOCYTES ABSOLUTE MAN 4.70 K/mm3 (0.84-5.20); LYMPHOCYTES PERCENT MAN 36 % (21-46); METAMYELOCYTE ABSOLUTE MAN 0.65 K/mm3 (0.00-0.00); METAMYELOCYTE PERCENT MAN 5 % (0-0); MONOCYTES ABSOLUTE MAN 0.91 K/mm3 (0.16-1.47); MONOCYTES PERCENT MAN 7 % (4-13); MYELOCYTE ABSOLUTE MAN 0.13 K/mm3 (0.00-0.00); MYELOCYTE PERCENT MAN 1 % (0-0); NEUTROPHILS ABSOLUTE MAN 5.62 K/mm3 (1.96-9.15); SEG NEUTROPHILS PERCENT MAN 42 % (41-73)
[2025-05-08 06:58] LABS: Anion Gap 6.0 mmol/L (3-11); Blood Urea Nitrogen 18.0 mg/dL (8-24); CO2, Blood 30.0 mmol/L (21-32); Calcium, Blood 10.4 mg/dL (8.5-10.1); Chloride, Blood 107.0 mmol/L (98-108); Creatinine, Blood 0.69 mg/dL (0.40-1.00); Glucose, Blood 89.0 mg/dL (70-99); Potassium, Blood 4.5 mmol/L (3.5-5.5); Sodium, Blood 138.0 mmol/L (136-145)
[2025-05-08] MEDS ORDERED: Heparin Sodium 5000 Units/ML 1ML MDV IV ONE (07:00)
[2025-05-08 07:52] VITALS: BP 101/71
[2025-05-08 12:30] VITALS: BP 113/79
[2025-05-08 16:22] VITALS: BP 109/77
--- NOTE | 2025-05-08 19:22 | NUR ---
SHIFT SUMMARY- PATIENT HAD SOFT INCONTINENT BM WHICH SHE STATES IS NORMAL FOR HER. HCP CONSULTED WITH [facility] TODAY IN REGARDS TO THE DVT IN HER LEFT LEG. THEY WILL BE DISCUSSING IF PROCEDURE WILL BE NEEDED TO RESOLVE. THERE HAS BEEN NO CHANGE TO CARE IN REGARDS TO THAT ON THIS RNS SHIFT.
[2025-05-08 21:09] VITALS: BP 103/73
[2025-05-09 00:34] VITALS: BP 98/65
--- NOTE | 2025-05-09 04:42 | NUR ---
SHIFT SUMMARY: PT AOX3-4. CONT. PULSE OX IN PLACE AND PT O2 GREATER THEN 93 PERCENT. PT RESTING THROUGH OUT THE NIGHT AND MEDICATED PER EMAR. NO ACUTE CHANGES THIS SHIFT.
[2025-05-09 05:00] VITALS: BP 112/71
[2025-05-09 05:03] LABS: Hematocrit 26.6 % (33.0-51.0); Hemoglobin 8.3 g/dL (11.5-16.0); Mean Corpuscular HGB Conc 31.2 g/dL (31.5-36.5); Mean Corpuscular Volume 79 fL (80-100); NRBC ABSOLUTE 0.00 K/mm3 (0.00-0.02); NRBC Auto 0.0 /100 WBC (0.0-0.2); Platelet Count 676 K/mm3 (150-400); RDW Coefficient Variation 19.3 % (11.7-14.2); RDW Standard Deviation 54.7 fL (35.1-46.3)
[2025-05-09 05:26] LABS: Anion Gap 4.0 mmol/L (3-11); Blood Urea Nitrogen 21.0 mg/dL (8-24); CO2, Blood 30.0 mmol/L (21-32); Calcium, Blood 10.4 mg/dL (8.5-10.1); Chloride, Blood 106.0 mmol/L (98-108); Creatinine, Blood 0.64 mg/dL (0.40-1.00); Glucose, Blood 94.0 mg/dL (70-99); Potassium, Blood 4.4 mmol/L (3.5-5.5); Sodium, Blood 136.0 mmol/L (136-145)
[2025-05-09 06:05] LABS: BAND PERCENT MAN 1 % (0-8); BASOPHILS ABSOLUTE MAN 0.37 K/mm3 (0.00-0.23); BASOPHILS PERCENT MAN 3 % (0-2); EOSINOPHILS ABSOLUTE MAN 0.98 K/mm3 (0.00-0.68); EOSINOPHILS PERCENT MAN 8 % (0-6); LYMPHOCYTES % ATYPICAL MANUAL 1 % (0-0); LYMPHOCYTES ABSOLUTE MAN 5.19 K/mm3 (0.84-5.20); LYMPHOCYTES PERCENT MAN 41 % (21-46); METAMYELOCYTE ABSOLUTE MAN 0.12 K/mm3 (0.00-0.00); METAMYELOCYTE PERCENT MAN 1 % (0-0); MONOCYTES ABSOLUTE MAN 0.49 K/mm3 (0.16-1.47); MONOCYTES PERCENT MAN 4 % (4-13); NEUTROPHILS ABSOLUTE MAN 5.19 K/mm3 (1.96-9.15); SEG NEUTROPHILS PERCENT MAN 41 % (41-73)
[2025-05-09 07:44] VITALS: BP 114/79
[2025-05-09 11:14] VITALS: BP 95/63
[2025-05-09 15:33] VITALS: BP 104/66
[2025-05-09] MEDS ORDERED: HYDROcodone 5-APAP 325 TAB PO PRN (17:50)
--- NOTE | 2025-05-09 19:08 | NUR ---
SHIFT SUMMARY- CARE PLAN IS WORKING ON RESOLVING DVT IN LL. A REPEAT ULTRASOUND WAS DONE TODAY TO SEE THE PROGRESS OF CLOT WITH HEPARIN THERAPY. RESULTS AND REVIEW OF THAT ULTRASOUND ARE PENDING. CONTINUOUS PULSE/OX DISCONTINUED TODAY AT THE PATIENT S REQUEST. PATIENT REPORTED WORSENING LEG PAIN THAT IS UNRESOLVED WITH TYLENOL. HCP ORDERED VICODEN FOR RELIEF OF LEG PAIN.
[2025-05-09 19:32] VITALS: BP 110/63
[2025-05-10 00:21] VITALS: BP 101/65
[2025-05-10 03:51] LABS: Hematocrit 26.7 % (33.0-51.0); Hemoglobin 8.2 g/dL (11.5-16.0); Mean Corpuscular HGB Conc 30.7 g/dL (31.5-36.5); Mean Corpuscular Volume 79 fL (80-100); NRBC ABSOLUTE 0.00 K/mm3 (0.00-0.02); NRBC Auto 0.0 /100 WBC (0.0-0.2); Platelet Count 661 K/mm3 (150-400); RDW Coefficient Variation 19.7 % (11.7-14.2); RDW Standard Deviation 55.8 fL (35.1-46.3)
[2025-05-10 04:09] VITALS: BP 102/67
[2025-05-10 04:10] LABS: Anion Gap 5.0 mmol/L (3-11); Blood Urea Nitrogen 28.0 mg/dL (8-24); CO2, Blood 29.0 mmol/L (21-32); Calcium, Blood 10.1 mg/dL (8.5-10.1); Chloride, Blood 106.0 mmol/L (98-108); Creatinine, Blood 0.81 mg/dL (0.40-1.00); Glucose, Blood 96.0 mg/dL (70-99); Potassium, Blood 4.4 mmol/L (3.5-5.5); Sodium, Blood 136.0 mmol/L (136-145)
[2025-05-10 04:13] LABS: BAND PERCENT MAN 1 % (0-8); BASOPHILS ABSOLUTE MAN 0.10 K/mm3 (0.00-0.23); BASOPHILS PERCENT MAN 1 % (0-2); EOSINOPHILS ABSOLUTE MAN 0.84 K/mm3 (0.00-0.68); EOSINOPHILS PERCENT MAN 8 % (0-6); LYMPHOCYTES ABSOLUTE MAN 5.28 K/mm3 (0.84-5.20); LYMPHOCYTES PERCENT MAN 50 % (21-46); METAMYELOCYTE ABSOLUTE MAN 0.31 K/mm3 (0.00-0.00); METAMYELOCYTE PERCENT MAN 3 % (0-0); MONOCYTES ABSOLUTE MAN 0.42 K/mm3 (0.16-1.47); MONOCYTES PERCENT MAN 4 % (4-13); MYELOCYTE ABSOLUTE MAN 0.21 K/mm3 (0.00-0.00); MYELOCYTE PERCENT MAN 2 % (0-0); NEUTROPHILS ABSOLUTE MAN 3.38 K/mm3 (1.96-9.15); SEG NEUTROPHILS PERCENT MAN 31 % (41-73)
--- NOTE | 2025-05-10 04:14 | NUR ---
NO ACUTE CHANGES DURING SHIFT. PATIENT ALERT AND ORIENTED X4, ABLE TO MAKE NEEDS KNOWN. PATIENT ABLE TO TURN SELF IN BED. POWERGLIDE TO JOSE ANTONIO-HEPARIN RUNNING.PATIENT MEDICATED FOR PAIN-SEE EMAR. PATIENT HAS CORTES IN PLACE. BED IN LOW POSITION WITH WHEELS LOCKED. CALL LIGHT WITHIN REACH.
[2025-05-10] MEDS ORDERED: Clarify Drug Order XX ONE (05:30)
--- NOTE | 2025-05-10 06:59 | NUR ---
HEPARIN LEVEL WITHIN RANGE. NO CHANGE PER PHARMACY ORDER- PUMP AND ORDER VERIFIED WITH ROBERT LEDESMA
[2025-05-10 08:03] VITALS: BP 113/74
[2025-05-10 11:14] VITALS: BP 112/70
[2025-05-10] MEDS ORDERED: Heparin Sodium 1000 Units/ML 10ML MDV ONE ×2 (13:32→13:39)
[2025-05-10] MEDS ORDERED: NS 1,000 ML IV ONE ×2 (13:32→13:34)
[2025-05-10] MEDS ORDERED: Midazolam HCl 1MG / ML 2ML Vial ONE (13:38)
[2025-05-10] MEDS ORDERED: FentaNYL Citrate 50 MCG/ML 2 ML Injection ONE (13:38)
[2025-05-10 15:42] VITALS: BP 103/62
--- NOTE | 2025-05-10 16:51 | NUR ---
SHIFT SUMMARY- CARE PLAN IS WORKING ON RESOLVING DVT IN LL. PATIENT HAD A SUCCESSFUL THROMBECTOMY OF HER LEFT LOWER EXTREMITY TODAY. SHE CONTINUES ON HEPARIN DRIP WITH ANTICIPATION OF CHANGING OVER TO AN ORAL. PATIENT CONTINUES TO HAVE HEADACHES CONTROLLED BY TYLENOL AND LLE PAIN CONTROLLED WITH HYDROCODONE. ANTICIPATE DISCHARGE IN THE NEXT 24-48 HOURS.
[2025-05-10 19:19] VITALS: BP 109/76
[2025-05-11 00:10] VITALS: BP 99/66
[2025-05-11 03:53] LABS: BASOPHILS ABSOLUTE AUTO 0.12 K/mm3 (0.00-0.23); BASOPHILS PERCENT AUTO 1 % (0-2); EOSINOPHILS ABSOLUTE AUTO 0.63 K/mm3 (0.00-0.68); EOSINOPHILS PERCENT AUTO 6 % (0-6); Hematocrit 26.7 % (33.0-51.0); Hemoglobin 8.4 g/dL (11.5-16.0); IMMATURE GRAN ABSOLUTE AUTO 0.39 K/mm3 (0.00-0.10); IMMATURE GRAN PERCENT AUTO 3 % (0-1); LYMPHOCYTES ABSOLUTE AUTO 3.92 K/mm3 (0.84-5.20); LYMPHOCYTES PERCENT AUTO 34 % (21-46); MONOCYTES ABSOLUTE AUTO 1.48 K/mm3 (0.16-1.47); MONOCYTES PERCENT AUTO 13 % (4-13); Mean Corpuscular HGB Conc 31.5 g/dL (31.5-36.5); Mean Corpuscular Volume 80 fL (80-100); NEUTROPHILS ABSOLUTE AUTO 4.89 K/mm3 (1.96-9.15); NEUTROPHILS PERCENT AUTO 43 % (41-73); NRBC ABSOLUTE 0.00 K/mm3 (0.00-0.02); NRBC Auto 0.0 /100 WBC (0.0-0.2); Platelet Count 644 K/mm3 (150-400); RDW Coefficient Variation 19.6 % (11.7-14.2); RDW Standard Deviation 56.1 fL (35.1-46.3)
[2025-05-11 04:15] VITALS: BP 100/64
[2025-05-11] MEDS ORDERED: Clarify Drug Order XX ONE (04:20)
--- NOTE | 2025-05-11 05:44 | NUR ---
SHIFT SUMMARY NOC PT A/O X 4. PLEASANT AND COOPERATIVE WITH CARE. POST OP VSS. PT IS POST OP DAY 1 LLE THROMBECTOMY AND HAS FLOW STASIS DEVICE ON BACK OF LLE WITH DRESSING C/D/I. PAIN BEING MANAGED PER EMAR. POWERGLIDE IN JOSE ANTONIO INFUSING HEPARIN PER PHARMACY. ON TELE SINUS RHYTHM WITH BBB/PAC'S IN 90'S. PT HAS CHRONIC CORTES IN PLACE DRAINING YELLOW URINE TO GRAVITY, AND ON CONTACT ISOLATION FOR ESBL IN URINE. PT EXPECTED TO DISCHARGE TODAY TO [facility]. PT CURRENTLY RESTING WITH BED IN LOWEST POSITION, AND CALL LIGHT WITHIN REACH.
[2025-05-11 07:39] VITALS: BP 104/71
--- NOTE | 2025-05-11 13:11 | NUR ---
CALLED AND GAVE REPORT TO NURSE JENKINS AT [facility] ON PATIENT.
[2025-05-11] MEDS ORDERED: ELIQUIS5 M2 PO (16:37)
[2025-05-11] MEDS ORDERED: Ferrous Glucon324 M1 PO (16:38)
[2025-05-11] MEDS ORDERED: Norco 5-325 Ta1 EACH PO (16:39)
--- NOTE | 2025-05-11 17:38 | NUR ---
DISCHARGE SUMMARY 1330 DISCHARGE INSTRUCTIONS REVIEWED. VASCULAR DEVICE REMOVED INTACT AND W/O COMPLICATION. LEFT WITH MEDICAL RIDE TO SNF FACILITY. LEFT WITH ALL BELONGINGS AND IN A STABLE CONDITION.
--- NOTE | 2025-05-11 17:39 | NUR ---
1300- THIS RN REMOVED PT'S FLOWSTASIS DEVICE WITHOUT ANY ISSUES PER ORDER IN SARAH'S NOTES TO REMOVE DEVICE THIS AM. SITE COVERED WITH CHG TEGADERM.
== END 2025-05-11 14:00 | DRG 659 ==
LOC: ER 19:21 → MEDS 23:54
PROVIDERS: Family Medicine; Internal Medicine; Student in an Organized Health Care Education/Training Program; Urology; ADMIT Student in an Organized Health Care Education/Training Program
PROC: 0TC48ZZ Extirpation of Matter from Left Kidney Pelvis, Via Natural or Artificial Opening Endoscopic (ICD-10-PCS; 2025-05-02)
PROC: 0TC38ZZ Extirpation of Matter from Right Kidney Pelvis, Via Natural or Artificial Opening Endoscopic (ICD-10-PCS; 2025-05-02)
PROC: 0TP98DZ Removal of Intraluminal Device from Ureter, Via Natural or Artificial Opening Endoscopic (ICD-10-PCS; 2025-05-02)
PROC: BT141ZZ Fluoroscopy of Kidneys, Ureters and Bladder using Low Osmolar Contrast (ICD-10-PCS; 2025-05-02)
PROC: 0T788DZ Dilation of Bilateral Ureters with Intraluminal Device, Via Natural or Artificial Opening Endoscopic (ICD-10-PCS; principal; 2025-05-02 09:30)
PROC: 04CJ3ZZ Extirpation of Matter from Left External Iliac Artery, Percutaneous Approach (ICD-10-PCS; 2025-05-10)
PROC: 04CL3ZZ Extirpation of Matter from Left Femoral Artery, Percutaneous Approach (ICD-10-PCS; 2025-05-10)
PROC: 04CN3ZZ Extirpation of Matter from Left Popliteal Artery, Percutaneous Approach (ICD-10-PCS; 2025-05-10)
PROC: 0T2BX0Z Change Drainage Device in Bladder, External Approach (ICD-10-PCS; 2025-05-11)
DX: T83.511A Infection and inflammatory reaction due to indwelling urethral catheter, initial encounter (principal); A41.51 Sepsis due to Escherichia coli [E. coli]; A41.81 Sepsis due to Enterococcus; E87.1 Hypo-osmolality and hyponatremia; Z16.12 Extended spectrum beta lactamase (ESBL) resistance; I50.32 Chronic diastolic (congestive) heart failure; I82.412 Acute embolism and thrombosis of left femoral vein; I82.432 Acute embolism and thrombosis of left popliteal vein; I82.452 Acute embolism and thrombosis of left peroneal vein; N39.0 Urinary tract infection, site not specified; K21.9 Gastro-esophageal reflux disease without esophagitis; F32.A Depression, unspecified; I45.10 Unspecified right bundle-branch block; D75.839 Thrombocytosis, unspecified; D50.9 Iron deficiency anemia, unspecified; I95.81 Postprocedural hypotension; N20.0 Calculus of kidney; Z88.5 Allergy status to narcotic agent; Z88.8 Allergy status to other drugs, medicaments and biological substances; Z79.899 Other long term (current) drug therapy; Z86.711 Personal history of pulmonary embolism; Z79.01 Long term (current) use of anticoagulants; Z87.448 Personal history of other diseases of urinary system; Y84.6 Urinary catheterization as the cause of abnormal reaction of the patient, or of later complication, without mention of misadventure at the time of the procedure
CPT/HCPCS: 36415; 36430; 71045; 74176; 74177; 76937; 80048; 80053; 81001; 82607; 82728; 82746; 83540; 83550; 83605; 83690; 83735; 84484; 85025; 85520; 85610; 85730; 86850; 86900; 86901; 86923; 87077; 87086; 87186; 88300; 93005; 93010; 93971; 94762; 96374; 97110; 97162; 97165; 97530; 97535; 99152; 99153; 99285-25; A9270; C1751; C1757; C1758; C1769; C1887; C1894; C2617; J1644; J1650; J2185; J2250; J2405; J2704; J2765; J3010; J7030; J7040; J7050; J7120; P9016; Q9967

== ENCOUNTER → 2025-06-28 | Outpatient (CLI) | payer MEDICARE, BC ==
[~2025-06-28] MED LIST changes: +FERSU300 PO; +FURO20 PO; +Ferrous Glucon324 M1 PO; -NS 1,000 ML IV SCH; +Norco 5-325 Ta1 EACH PO
[2025-06-28 13:28] LABS: Bilirubin, Urine Neg (Neg); Color, Urine Yellow (P-Yellow); Glucose Qualitative, Urine Neg (Neg); Ketones, Urine Neg (Neg); Leukocyte Esterase, Urine 3+ (Neg); Protein, Urine 3+ (Neg); Specific Gravity, Urine 1.015 (1.003-1.022); Urobilinogen, Urine NORM (Normal)
[2025-06-28 13:48] LABS: Red Blood Cells, Urine TNTC /hpf (0-2); White Blood Cells, Urine 50-100 /hpf (0-5)
== END ==
LOC: LAB 11:20 → LAB SHORT 11:20
DX: N20.0 Calculus of kidney (principal); Z96.0 Presence of urogenital implants
CPT/HCPCS: 81001; 87077; 87086; 87186

== ENCOUNTER → 2025-07-01 | Outpatient (CLI) | payer MEDICARE, BC, OTHER ==
[2025-07-01 12:50] LABS: Hematocrit 30.1 % (33.0-51.0); Hemoglobin 8.9 g/dL (11.5-16.0); Mean Corpuscular HGB Conc 29.6 g/dL (31.5-36.5); Mean Corpuscular Volume 76 fL (80-100); NRBC ABSOLUTE 0.00 K/mm3 (0.00-0.02); NRBC Auto 0.0 /100 WBC (0.0-0.2); Platelet Count 719 K/mm3 (150-400); RDW Coefficient Variation 18.6 % (11.7-14.2); RDW Standard Deviation 51.3 fL (35.1-46.3)
[2025-07-01 13:01] LABS: Alanine Aminotransfer (ALT/SGP 17.0 U/L (12-78); Albumin, Blood 2.7 g/dL (3.4-5.0); Albumin/Globulin Ratio 0.4 (0.8-1.8); Anion Gap 7.0 mmol/L (3-11); Aspartate Aminotrans (AST/SGOT 15.0 U/L (12-37); Bilirubin, Total 0.3 mg/dL (0.1-1.0); Blood Urea Nitrogen 26.0 mg/dL (8-24); CO2, Blood 26.0 mmol/L (21-32); Calcium, Blood 11.9 mg/dL (8.5-10.1); Chloride, Blood 107.0 mmol/L (98-108); Creatinine, Blood 0.91 mg/dL (0.40-1.00); Globulin, Blood 6.2 g/dL (2.2-4.0); Glucose, Blood 93.0 mg/dL (70-99); Potassium, Blood 4.2 mmol/L (3.5-5.5); Sodium, Blood 136.0 mmol/L (136-145); Total Protein, Blood 8.9 g/dL (6.4-8.2)
[2025-07-01 13:11] LABS: Fibrinogen 742.0 mg/dL (170-430); Prothrombin Time Results 11.9 Sec (9.7-11.5)
== END ==
LOC: LAB 11:00 → LAB SHORT 11:00
DX: N20.0 Calculus of kidney (principal); Z96.0 Presence of urogenital implants; I50.32 Chronic diastolic (congestive) heart failure
CPT/HCPCS: 80053; 85027; 85384; 85610; 85730